=== PATIENT | male | born 1960 | race Caucasian/White ===

== ENCOUNTER 2019-12-15 07:51 | Emergency (ER) | payer BC, SELFPAY ==
[2019-12-15 08:10] VITALS: BP 139/89; PULSE 100; RESP 16; TEMP 36.8; O2SAT 97; BMI 23.7
--- NOTE | 2019-12-15 08:16 | XRR_ITS ---
PROCEDURE INFORMATION: Exam: XR Abdomen, 1 View Exam date and time: 12/15/2019 8:30 AM Age: 59 years old Clinical indication: Prior surgery; Surgery date: 6+ months; Surgery type: Appy; Patient HX: C/O constipation/ no bowel movement; Additional info: Constipated TECHNIQUE: Imaging protocol: XR of the abdomen. Views: Frontal supine view of the abdomen. 1 View. COMPARISON: No relevant prior studies available. FINDINGS: Gastrointestinal tract: bowel gas pattern is nonspecific. Air filled large bowel including distal rectal gas. Large amount of stool throughout the large bowel. Bones/joints: Unremarkable. XR/XR KUB portable 07384 IMPRESSION: 1. Bowel gas pattern is nonspecific. Air filled large bowel including distal rectal gas. 2. Large amount of stool throughout the large bowel.
[2019-12-15 08:23] VITALS: BP 131/95; PULSE 104; RESP 17; O2SAT 98
--- NOTE | 2019-12-15 08:26 | ED_ITS ---
HPI - General Adult General: Chief complaint: General Medical Stated complaint: no bm Time Seen by Provider: 12/15/19 08:01 History of Present Illness: HPI narrative: Patient arrives was then he has not had a bowel movement today. Said he is been having bowel movements normally. She is getting ready go out [place] and 1 make sure that his bowels are working fine. Says he took his finger with some Vaseline and only got a little bit of stool out this morning. After further conversation he does this routinely. Does not have any pain does not feel sick just more fixated on his bowel. MD complaint: No bowel movement today Onset (ago): hour(s) Location: abdomen Severity: mild Associated symptoms: Deny chest pain, dyspnea, headache(s), nausea, rash or vomiting Review of Systems Const: Denies: fever(s), chills or body aches Eyes: Denies: change in vision or blurry vision ENMT: Denies: throat pain or nasal congestion Card: Denies: chest pain or dyspnea on exertion Resp: Denies: dyspnea, productive cough or non-productive cough GI: Reports: other (Has not had a bowel movement today and is concerned about that); Denies: abdominal pain, nausea or vomiting : Denies: difficulty urinating Musc: Denies: extremity pain Skin/Breast: Denies: rash Neuro: Denies: headache(s) Psych: Denies: anxiety or depression Saman/Lymph: Denies: easy bruising Physical Exam Const: COMMON NORMALS: no acute distress, average body habitus and patient oriented x3 HENMT: COMMON NORMALS: normocephalic HEAD & SCALP: normal to inspection and normocephalic FACE & SINUS: normal facial exam Eye: COMMON NORMALS: conjunctivae normal GENERAL EYE: appearance normal, both eyes and all related structures CONJUNCTIVA: Yes conjunctivae normal Neck/C-Spine: COMMON NORMALS: no JVD Chest: COMMONS NORMALS: normal inspection of the chest Resp: COMMON NORMALS: normal respiratory effort and clear to auscultation bilaterally AUSCULTATION: clear to auscultation bilaterally Cardio: COMMON NORMALS: no JVD, regular rate and regular rhythm RATE: regular rate RHYTHM: regular rhythm GI: COMMON NORMALS: Normal to inspection, nondistended, normoactive bowel sounds present Extremity: COMMON NORMALS: normal to inspection and full ROM Neuro: COMMON NORMALS: patient oriented x3 Course Vital Signs: Vital signs: Vital Signs Temperature 98.3 F 12/15/19 08:10 Pulse Rate 104 H 12/15/19 08:23 Respiratory Rate 17 12/15/19 08:23 Blood Pressure 131/95 12/15/19 08:23 Pulse Oximetry 98 12/15/19 08:23 Coding Level of Care Code ED Lump Room Supervisor for Kasi Cai
== END 2019-12-15 08:50 | disposition home or self-care (01) ==
LOC: ER 10:44
PROVIDERS: Emergency Provider Nurse Practitioner Family
DX: K59.00 Constipation, unspecified (principal)
CPT/HCPCS: 12345; 74018; 99282